=== PATIENT | female | born 1990 | race Caucasian/White ===

== ENCOUNTER 2022-04-05 04:53 | Inpatient (IN) | payer MEDICAID ==
[~2022-04-05] VITALS: Ht 162.6 cm; Wt 58.5 kg
[2022-04-05] MEDS ORDERED: ACETAMINOPHEN 325MG TABLET PO ONE (08:15)
[2022-04-05 09:09] LABS: COLOR URINE DARK YELLOW (YELLOW)
[2022-04-05] MEDS ORDERED: CEFTRIAXONE 1 G PREMIX 50 ML IV ONE (09:15)
[2022-04-05] MEDS ORDERED: AZITHROMYCIN 500 MG in DEXT 5% WATER 250 ML IV SCH (09:15)
[2022-04-05 09:18] LABS: CLARITY URINE SL HAZY (CLEAR); KETONES URINE TRACE (NEGATIVE); PROTEIN URINE 1+ (NEGATIVE)
[2022-04-05 09:19] LABS: LEUKOCYTE ESTERASE URINE NEGATIVE (NEGATIVE); NITRITE URINE NEGATIVE (NEGATIVE); OCCULT BLOOD URINE NEGATIVE (NEGATIVE); UROBILINOGEN URINE 0.2 E.U./dL (0.2-1.0)
[2022-04-05 09:50] LABS: CHLORIDE 96 mEq/L (98-107); HEMATOCRIT. 25.1 % (36.0-48.0); HEMOGLOBIN. 8.6 g/dL (12.0-16.0); MEAN CORPUSCULAR HEMOGLOBIN 31.4 pg (28.0-32.0); MEAN CORPUSCULAR VOLUME 91.9 fL (81.0-99.0); MEAN PLATELET VOLUME 8.1 fl (7.4-10.4); PLATELET 475 x1000/uL (130-400); RED BLOOD CELL COUNT 2.73 mill/uL (4.2-5.4); RED CELL DISTRIBUTION WIDTH 14.2 % (11.6-14.6)
[2022-04-05 11:17] LABS: PLATELET ESTIMATE INCREASED
[2022-04-05] MEDS ORDERED: CLONIDINE 0.1MG TABLET PO PRN (13:45)
[2022-04-05] MEDS ORDERED: DOCUSATE SODIUM 100MG CAPSULE PO PRN (13:45)
[2022-04-05] MEDS ORDERED: IPRATROPIUM/ALBUTEROL 0.5-3(2.5)MG/3ML NEB HHN PRN (13:45)
[2022-04-05] MEDS ORDERED: ONDANSETRON HCL 4MG/2ML INJ IV PRN (13:45)
[2022-04-05] MEDS ORDERED: MAGNESIUM/ALUMINUM HYDROXIDE/SIMETHICONE 30ML UDC PO PRN (13:45)
[2022-04-05] MEDS ORDERED: ACETAMINOPHEN 650MG/20.3ML UDC GT PRN (13:45)
[2022-04-05] MEDS ORDERED: GUAIFENESIN 200MG/10ML SUGAR FREE UDC PO PRN (13:45)
[2022-04-05] MEDS ORDERED: CEFTRIAXONE 1 G PREMIX 50 ML IV SCH (14:00)
[2022-04-05] MEDS: ENOXAPARIN 40MG/0.4ML SYR SUBCUT SCH (15:00)
[2022-04-05 16:04] LABS: INR 1.1; PROTHROMBIN TIME 11.4 sec (9.6-11.0)
[2022-04-05] MEDS: GUAIFENESIN/DM 600MG/30MG ER TAB 12HR PO SCH (18:00)
[2022-04-05] MEDS ORDERED: KETOROLAC 15MG/ML VIAL IV PRN (18:00)
[2022-04-05] MEDS ORDERED: ZOLPIDEM TARTRATE 5MG TABLET PO PRN (18:00)
[2022-04-05] MEDS: FAMOTIDINE 20MG TABLET PO SCH (21:00)
[2022-04-05] MEDS: ASCORBIC ACID 500 MG TABLET PO SCH (21:00)
[2022-04-06 03:06] VITALS: BP 96/57
[2022-04-06 03:08] VITALS: BP 98/57
[2022-04-06] MEDS: GUAIFENESIN/DM 600MG/30MG ER TAB 12HR PO SCH ×2 (06:07→18:12)
[2022-04-06 08:00] VITALS: BP 88/51
[2022-04-06] MEDS ORDERED: AZITHROMYCIN 500 MG in DEXT 5% WATER 250 ML IV SCH (09:00)
[2022-04-06] MEDS: ZINC SULFATE 220 MG ( 50 ) CAPSULE PO SCH (09:05)
[2022-04-06] MEDS: ASCORBIC ACID 500 MG TABLET PO SCH ×2 (09:06→21:29)
[2022-04-06] MEDS: CEFTRIAXONE 1,000 MG in DEXTROSE 5% WATER 50 ML IV SCH (10:12)
[2022-04-06 10:55] LABS: BASOPHILS % 0.1 % (0.0-2.0); EOSINOPHILS % 0.4 % (0.0-5.0); HEMATOCRIT. 24.9 % (36.0-48.0); HEMOGLOBIN. 8.3 g/dL (12.0-16.0); LYMPHOCYTES % 14.8 % (20.0-50.0); MEAN CORPUSCULAR VOLUME 92.6 fL (81.0-99.0); MONOCYTES % 6.3 % (2.0-8.0); NEUTROPHILS % 78.4 % (40.0-76.0); PLATELET 447 x1000/uL (130-400); RED BLOOD CELL COUNT 2.69 mill/uL (4.2-5.4); RED CELL DISTRIBUTION WIDTH 14.2 % (11.6-14.6)
[2022-04-06 11:03] LABS: CHLORIDE 104 mEq/L (98-107)
[2022-04-06 11:45] VITALS: BP 92/53
[2022-04-06] MEDS: AZITHROMYCIN 500 MG in DEXT 5% WATER 250 ML IV SCH (13:09)
[2022-04-06] MEDS: ENOXAPARIN 40MG/0.4ML SYR SUBCUT SCH (15:56)
[2022-04-06 16:00] VITALS: BP 98/63
[2022-04-06 20:00] VITALS: BP 86/47
[2022-04-06] MEDS: FAMOTIDINE 20MG TABLET PO SCH (21:29)
[2022-04-07] MEDS: GUAIFENESIN/DM 600MG/30MG ER TAB 12HR PO SCH (06:00)
[2022-04-07 07:31] LABS: BASOPHILS % 0.7 % (0.0-2.0); EOSINOPHILS % 0.9 % (0.0-5.0); HEMATOCRIT. 23.5 % (36.0-48.0); LYMPHOCYTES % 44.3 % (20.0-50.0); MEAN CORPUSCULAR HEMOGLOBIN 31.6 pg (28.0-32.0); MEAN CORPUSCULAR VOLUME 92.8 fL (81.0-99.0); MEAN PLATELET VOLUME 8.2 fl (7.4-10.4); MONOCYTES % 9.1 % (2.0-8.0); PLATELET 526 x1000/uL (130-400); RED BLOOD CELL COUNT 2.54 mill/uL (4.2-5.4); RED CELL DISTRIBUTION WIDTH 14.5 % (11.6-14.6)
[2022-04-07 07:58] LABS: CHLORIDE 104 mEq/L (98-107)
[2022-04-07 08:00] VITALS: BP 125/70
[2022-04-07 08:02] LABS: PHOSPHORUS 3.3 mg/dL (2.5-4.9)
[2022-04-07] MEDS: CEFTRIAXONE 1,000 MG in DEXTROSE 5% WATER 50 ML IV SCH (08:07)
[2022-04-07] MEDS: AZITHROMYCIN 500 MG in DEXT 5% WATER 250 ML IV SCH (08:07)
[2022-04-07] MEDS: ZINC SULFATE 220 MG ( 50 ) CAPSULE PO SCH (08:07)
[2022-04-07] MEDS: ASCORBIC ACID 500 MG TABLET PO SCH ×2 (08:10→21:01)
[2022-04-07 12:00] VITALS: BP 114/69
[2022-04-07] MEDS: ENOXAPARIN 40MG/0.4ML SYR SUBCUT SCH (15:12)
[2022-04-07 16:00] VITALS: BP 120/64
[2022-04-07 20:00] VITALS: BP 103/55
[2022-04-07] MEDS: FAMOTIDINE 20MG TABLET PO SCH (21:01)
[2022-04-08] VITALS: BP 108/60
[2022-04-08 04:00] VITALS: BP 110/62
[2022-04-08] MEDS: GUAIFENESIN/DM 600MG/30MG ER TAB 12HR PO SCH (05:58)
[2022-04-08 08:00] VITALS: BP 126/83
[2022-04-08 08:57] LABS: HEMOGLOBIN. 8.9 g/dL (12.0-16.0); MEAN CORPUSCULAR HEMOGLOBIN 31.9 pg (28.0-32.0); MEAN CORPUSCULAR VOLUME 92.8 fL (81.0-99.0); MEAN PLATELET VOLUME 7.9 fl (7.4-10.4); PLATELET 540 x1000/uL (130-400); RED CELL DISTRIBUTION WIDTH 14.1 % (11.6-14.6)
[2022-04-08] MEDS: AZITHROMYCIN 500 MG in DEXT 5% WATER 250 ML IV SCH (09:17)
[2022-04-08] MEDS: ASCORBIC ACID 500 MG TABLET PO SCH (09:18)
[2022-04-08] MEDS: ZINC SULFATE 220 MG ( 50 ) CAPSULE PO SCH (09:18)
[2022-04-08] MEDS: CEFTRIAXONE 1,000 MG in DEXTROSE 5% WATER 50 ML IV SCH (09:18)
[2022-04-08 09:19] LABS: CHLORIDE 106 mEq/L (98-107)
[2022-04-08] MEDS ORDERED: ASCO500T20 PO (09:41)
[2022-04-08] MEDS ORDERED: AZIT500T3 MT (09:41)
[2022-04-08] MEDS ORDERED: ZINC220C2 PO (09:41)
[2022-04-08 12:33] VITALS: BP 126/83
[2022-04-08 14:19] LABS: PLATELET ESTIMATE INCREASED
== END 2022-04-08 13:39 | disposition home or self-care (01) | DRG 720 ==
LOC: ER 05:03 → EDBEDREQ 10:30 → EDBEDREQTM 10:30 → ER 15:02 → MICUSO 23:26 → 6EST 04-06 03:00
PROVIDERS: ADMIT Internal Medicine; ATTEND Internal Medicine
DX: A41.9 Sepsis, unspecified organism (principal); J11.08 Influenza due to unidentified influenza virus with specified pneumonia; E44.0 Moderate protein-calorie malnutrition; J15.9 Unspecified bacterial pneumonia; Z94.84 Stem cells transplant status; E87.1 Hypo-osmolality and hyponatremia; D64.9 Anemia, unspecified; R74.01 Elevation of levels of liver transaminase levels; D72.829 Elevated white blood cell count, unspecified; K82.4 Cholesterolosis of gallbladder; Z68.22 Body mass index [BMI] 22.0-22.9, adult
CPT/HCPCS: 36415; 71046; 76700; 80048; 80053; 81003; 82607; 82746; 83605; 83735; 84100; 84145; 85025; 87070; 93005; 99285; C9803; J0456; J0696; J1650; J1885; J2405; J7060